=== PATIENT | female | born 1975 | race Caucasian/White ===

== ENCOUNTER 2016-10-16 15:10 | Emergency (ER) | payer BC ==
--- NOTE | 2016-10-16 15:19 | PDOC ---
History of Present Illness - General History Source: Patient Exam Limitations: No Limitations - History of Present Illness Initial Comments: 10/16/16 15:41 The patient is a 41 year old female, with no significant past medical history, who presents to the emergency department complaining of right foot pain s/p twisting her foot while running earlier this afternoon. The patient reports she was on a run when her right foot inverted. She reports associated pain which radiates to the lower aspect of the right leg. The patient reports taking 3 advil for the pain and icing her foot, with mild relief. She reports associated right foot swelling. Patient reports her pain is exacerbated when baring weight on her right foot. Patient states her pain is not similar to the ankle fracture she has had in the past. She denies any other trauma. She denies any fever or chills. She denies any recent travel or sick contacts. Allergies: NKDA Past Surgical History: None reported Social History: Non smoker. No ETOH or drug use. <Chuck Singh - Last Filed: 10/16/16 15:46> <Kosta Arellano - Last Filed: 10/16/16 15:49> - General Chief Complaint: Injury Stated Complaint: RT FOOT PAIN Time Seen by Provider: 10/16/16 15:18 Past History <Chuck Singh - Last Filed: 10/16/16 15:46> <Kosta Arellano - Last Filed: 10/16/16 15:49> - Past Medical History Allergies/Adverse Reactions: Allergies Allergy/AdvReac Type Severity Reaction Status Date / Time No Known Allergies Allergy Verified 10/16/16 15:15 Home Medications: Ambulatory Orders Ibuprofen [Advil -] 600 mg PO ASDIR PRN 10/16/16 Review of Systems - Review of Systems Able to Perform ROS?: Yes Comments:: 10/16/16 15:41 GENERAL/CONSTITUTIONAL: No fever or chills. No weakness. HEAD, EYES, EARS, NOSE AND THROAT: No change in vision. No ear pain or discharge. No sore throat. CARDIOVASCULAR: No chest pain or shortness of breath. RESPIRATORY: No cough, wheezing, or hemoptysis. GASTROINTESTINAL: No nausea, vomiting, diarrhea or constipation. GENITOURINARY: No dysuria, frequency, or change in urination. MUSCULOSKELETAL: Yes: +right foot pain radiating to lower aspect of the right leg, +right foot swelling, +difficulty baring weight on right foot. No other joint or muscle swelling or pain. No neck or back pain. SKIN: No rash NEUROLOGIC: No headache, vertigo, loss of consciousness, or change in strength/ sensation. ENDOCRINE: No increased thirst. No abnormal weight change. HEMATOLOGIC/LYMPHATIC: No anemia, easy bleeding, or history of blood clots. ALLERGIC/IMMUNOLOGIC: No hives or skin allergy. <Chuck Singh - Last Filed: 10/16/16 15:46> *Physical Exam - Vital Signs Last Vital Signs Temp Pulse Resp BP Pulse Ox 98.1 F 67 18 123/76 100 10/16/16 15:10 10/16/16 15:10 10/16/16 15:10 10/16/16 15:10 10/16/16 15:10 - Physical Exam Comments: 10/16/16 15:41 GENERAL: Awake, alert, and fully oriented, in no acute distress HEAD: No signs of trauma EYES: PERRLA, EOMI, sclera anicteric, conjunctiva clear ENT: Auricles normal inspection, hearing grossly normal, nares patent, oropharynx clear without exudates. Moist mucosa NECK: Normal ROM, supple, no lymphadenopathy, JVD, or masses LUNGS: Breath sounds equal, clear to auscultation bilaterally. No wheezes, and no crackles HEART: Regular rate and rhythm, normal S1 and S2, no murmurs, rubs or gallops ABDOMEN: Soft, nontender, normoactive bowel sounds. No guarding, no rebound. No masses EXTREMITIES: Mild tenderness and edema to the dorsolateral aspect of the right foot. Achilles tendon normal. Normal range of motion. No clubbing or cyanosis. No cords, erythema. NEUROLOGICAL: Cranial nerves II through XII grossly intact. Normal speech, normal gait SKIN: Warm, Dry, normal turgor, no rashes or lesions noted. <Chuck Singh - Last Filed: 10/16/16 15:46> ED Treatment Course - RADIOLOGY Radiograph Interpretation: 10/16/16 15:47 EXAM: Right foot X-Ray INTERPRETED BY: Dr. De Leon REVIEWED BY: Dr. Arellano IMPRESSION: No acute pathology. <Chuck Singh - Last Filed: 10/16/16 15:46> - ADDITIONAL ORDERS Additional order review: 10/16/16 15:48 Pt with right foot sprain/contusion Ice, elevate, ashkan wrap If worsen return to ER Pt is in agreement with plan <Kosta Arellano - Last Filed: 10/16/16 15:49> *DC/Admit/Observation/Transfer - Attestations Scribe Attestion: 10/16/16 15:42 Documentation prepared by Chuck Singh, acting as senior medical billing specialist for Kosta Arellano MD. <Chuck Singh - Last Filed: 10/16/16 15:46> - Discharge Dispostion Admit: No <Kosta Arellano - Last Filed: 10/16/16 15:49> Diagnosis at time of Disposition: Sprain of right foot Qualifiers: Encounter type: initial encounter Qualified Code(s): S93.601A - Unspecified sprain of right foot, initial encounter - Discharge Dispostion Disposition: HOME Condition at time of disposition: Stable - Referrals Referrals: Gela Shah MD [Primary Care Provider] - - Patient Instructions Printed Discharge Instructions: DI for Foot Sprain Additional Instructions: Ice, Motrin, rest Elevate Ashkan wrap during day, off at night If worsen return to ER
[2016-10-16 15:20] VITALS: BP 123/76; PULSE 67; TEMP 98.1; BMI 22.0
== END 2016-10-16 15:55 | disposition home or self-care (01) ==
LOC: FER 15:10
DX: S93.601A Unspecified sprain of right foot, initial encounter (principal); X58.XXXA Exposure to other specified factors, initial encounter; Y93.89 Activity, other specified; Y92.89 Other specified places as the place of occurrence of the external cause
CPT/HCPCS: 73630-TC-RT; 99282-25